=== PATIENT | male | born 1990 | race African-American/Black ===

== ENCOUNTER 2016-11-22 23:07 | Emergency (ER) | payer MEDICAID, OTHER ==
[~2016-11-22] VITALS: Ht 177.8 cm; Wt 75.0 kg
[2016-11-22 23:54] VITALS: BP 115/65
== END 2016-11-22 23:55 | disposition home or self-care (01) ==
LOC: EMS 23:09
DX: J02.9 Acute pharyngitis, unspecified (principal); F12.10 Cannabis abuse, uncomplicated; F17.210 Nicotine dependence, cigarettes, uncomplicated
CPT/HCPCS: 99283